=== PATIENT | female | born 1975 | race Caucasian/White ===

== ENCOUNTER 2025-06-27 12:27 | Emergency (ER) | payer OTHER, SELFPAY ==
[2025-06-27 12:33] VITALS: BP 146/94
--- NOTE | 2025-06-27 13:51 | ED.GENMED ---
History of Present Illness
General
Chief Complaint: Skin Surface Trauma
Source: patient
Exam Limitations: none
Time Seen by Provider: 06/27/25 13:09
Nursing documentation reviewed up to this point in time: agreed with
History of Present Illness
History of Present Illness:
Patient is a 49-year-old female presenting for left index finger laceration from using a knife. Patient was cutting cooked chicken and
cut her finger. She is right-hand dominant. She is unsure of her last tetanus shot. No other injuries denies any pain.
Phy Exam
General Physical Exam
General Presentation: no apparent distress
General age: appears stated age
General Skin: warm and dry
General Habitus: normal
General Mental: alert
General Hydration: appears well hydrated
Neurological Exam
Neurological Exam: alert and oriented x3
Musculoskeletal Exam
Musculoskeletal Exam: other (+ 2 cm partial-thickness laceration to left index finger distal phalynx ulnar aspect thru to subcutaneous tissue only no bony tenderness no swelling intact sensation and full flexion/extension )
Skin Exam
Skin Exam: normal color and warm/dry
Psychiatric Exam
Psychiatric Exam: normal mood/affect
Course
Orders/Labs/Results
Orders:
Orders
06/27/25 13:51
Tetanus/Diphth/Acelpertussis [Adacel] 0.5 ml IM .ONCE ONE
Vital Signs
Initial and Last Documented VS:
Initial Vital Signs
Temp Pulse Resp BP Pulse Ox
98.2 F 65 20 146/94 97
06/27/25 12:33 06/27/25 12:33 06/27/25 12:33 06/27/25 12:33 06/27/25 12:33
Last Documented Vital Signs
Temp Pulse Resp BP Pulse Ox
98.2 F 65 20 146/94 97
06/27/25 12:33 06/27/25 12:33 06/27/25 12:33 06/27/25 12:33 06/27/25 13:51
Procedures
Laceration Closure
Left Distal Second Finger:
Status of Wound: clean
Size of Wound in cm: 2
Description of Wound Edges: sharp and flap-poorly vascularized
Preparation: cleaned with saline
Anesthesia: 1% Lidocaine and Digital-Regional
Revision/Debridement: routine- no revision and irrigate-direct pressure
Wound exploration: no tendon involvement
Type of Closure: single layer closure and interrupted sutures
Skin Closure Material: 5-0 prolene
Number of sutures: 4
MDM/Problems Addressed
Differential Diagnosis Includes:
Not limited to finger laceration less likely tendon injury
MDM/Problems Addressed:
Simple laceration to left index finger sutured as documented ;no bony tenderness full flexion extension intact sensation through to subcutaneous tissue only. Wound care review. Tetanus updated
*Pulse Oximetry
SaO2: 97
Oxygen Mode of Delivery: Room air
Patient hypoxic: no
*Critical Care Note
Total Time (30-74mins, 75-104mins- exclusive of procedures): Not Applicable
ED Attending Note
-
Portions of this chart may have been created with voice recognition software.� Occasional wrong word or��sound alike� substitutions may have occurred due to the inherent limitations of voice recognition software.
Discharge Plan
Departure
Patient Disposition: Home (Routine Discharge)
Date of Disposition: 06/27/25
Time of Disposition: 14:20
Patient with high blood pressure during this ER visit?: Yes
Condition: Fair
Covid-19: Not Applicable
Discharge Problem:
Finger laceration
Instructions: Wound Care (DC), Laceration Repair With Stitches (DC), BLOOD PRESSURE
Activity Restrictions/Additional Instructions:
Keep wound clean and dry for 24 hours after 24 hours wash twice a day with soap and water pat dry and apply small layer of antibiotic ointment to the area. Wear splint for 24 hours. See family doctor as needed in the next 2 days for wound check
and sutures are to be removed in 10 to 12 days. Return if any signs of infection of increased pain swelling redness drainage fever chills.
Interventions
Interventions:
*Risk Screen - Suicide Last Done: 06/27/25 12:33
*General Assessment Last Done: 06/27/25 12:48
*Neglect/Abuse Screening Last Done: 06/27/25 12:33
*ED- Fall Risk Assessment Last Done: 06/27/25 12:47
*ED COVID-19 Vaccine History Last Done: 06/27/25 12:47
*ED Influenza Vaccine History Last Done: 06/27/25 12:47
ED-Skin Assessment Last Done: 06/27/25 12:47
Discharge Date and Time
Print Language: [place]
[2025-06-27] MEDS: ADACEL 0.5 ML IM (13:55)
== END 2025-06-27 14:40 | disposition home or self-care (01) ==
LOC: EMR 12:27
PROVIDERS: EMERGENCY PHYSICIAN Emergency Medicine; FAMILY PHYSICIAN Internal Medicine
DX: S61.211A Laceration without foreign body of left index finger without damage to nail, initial encounter (principal); W26.0XXA Contact with knife, initial encounter; Z23 Encounter for immunization
CPT/HCPCS: 99282; 12001; 90471; 90715